=== PATIENT | male | born 1945 | race Caucasian/White ===

== ENCOUNTER 2018-07-08 08:31 | Inpatient (IN) | payer MEDICARE | END 2018-07-12 12:06 | disposition home or self-care (01) | LOC: PAS IN 08:31 → ORTHO 4S 17:25 | PROC: 0RPK0JZ Removal of Synthetic Substitute from Left Shoulder Joint, Open Approach (ICD-10-PCS; principal; 2018-07-08 13:06) | PROC: 0RHK08Z Insertion of Spacer into Left Shoulder Joint, Open Approach (ICD-10-PCS; 2018-07-08 13:06) | DX: T84.59XA Infection and inflammatory reaction due to other internal joint prosthesis, initial encounter (principal); D62 Acute posthemorrhagic anemia; Z96.612 Presence of left artificial shoulder joint; M25.512 Pain in left shoulder ==

== ENCOUNTER 2019-02-27 06:24 | Emergency (ER) | payer MEDICARE ==
[~2019-02-27] VITALS: Ht 175.3 cm; Wt 141.8 kg
[~2019-02-27 06:24] MED LIST: ASPI-1 PO; CARV-50 PO; CYAN-51 PO; IPRA4AER IH; MULT-1085 PO; OMEP20CA11 PO; SPIR50TA PO
[2019-02-27 07:33] LABS: BASOPHILS # (AUTO) 0.1 X10'3 (0-0.2); BASOPHILS % (AUTO) 0.7 % (0-1); EOSINOPHILS # (AUTO) 0.5 X10'3 (0-0.9); EOSINOPHILS % (AUTO) 6.2 % (0-6); HEMATOCRIT 35.3 % (42.0-52.0); HEMOGLOBIN 12.3 g/dl (14.0-17.9); LYMPHOCYTES # (AUTO) 2.3 X10'3 (1.1-4.8); LYMPHOCYTES % (AUTO) 27.5 % (21-51); MEAN CORPUSCULAR HEMOGLOBIN 33.7 PG (27.0-31.0); MEAN CORPUSCULAR HGB CONC 34.8 g/dL (33.0-36.5); MONOCYTES # (AUTO) 0.5 X10'3 (0-0.9); MONOCYTES % (AUTO) 6.1 % (2-12); NEUTROPHILS # (AUTO) 4.9 X10'3 (1.8-7.7); NEUTROPHILS % (AUTO) 59.5 % (42-75); PLATELET COUNT 191 X10'3 (140-440); RED BLOOD COUNT 3.64 X10'6 (4.70-6.10); RED CELL DISTRIBUTION WIDTH 14.8 % (11.5-14.5); WHITE BLOOD COUNT 8.2 X10'3 (4.5-11.0)
[2019-02-27 07:34] LABS: CLARITY,URINE CLEAR (Clear); COLOR,URINE YELLOW (Yellow); GLUCOSE, URINE NEGATIVE (Neg); KETONES,URINE NEGATIVE (Neg); LEUKOCYTE ESTERASE ,URINE NEGATIVE (Neg); NITRITES, URINE NEGATIVE (Neg); OCCULT BLOOD,URINE NEGATIVE (Neg); PROTEIN,URINE 100 mg/dl (Neg); UROBILINOGEN,URINE 0.2 E.U/dL (0.2-1.0)
[2019-02-27 07:44] LABS: UA COLLECTION TYPE CLN CATCH MIDSTREAM
[2019-02-27 07:45] LABS: BACTERIA,URINE NONE SEEN /HPF (Neg); RBC,URINE NONE SEEN /HPF (0-2); SQUAMOUS EPITHELIAL CELL,UR FEW /LPF (FEW); WBC,URINE 0-4 /HPF (0-4)
[2019-02-27 07:46] LABS: MUCUS STRANDS NONE SEEN /LPF (Neg)
[2019-02-27 07:59] LABS: ALBUMIN 3.4 G/DL (3.4-5.0); ALBUMIN/GLOBULIN RATIO 0.9 (1.1-1.5); ALKALINE PHOSPHATASE 114 IU/L (46-116); ANION GAP 12 (8-16); ASPARTATE AMINO TRANSFERASE 12 U/L (10-37); BILIRUBIN,TOTAL 1.5 MG/DL (0.1-1.0); BLOOD UREA NITROGEN 16 MG/DL (7-18); BUN/CREATININE RATIO 13.6 (5.4-32.0); CHLORIDE 102 MMOL/L (99-107); CREATININE 1.18 MG/DL (0.60-1.10); GLUCOSE 116 MG/DL (70-104); POTASSIUM 3.1 MMOL/L (3.5-5.1); SODIUM 141 MMOL/L (135-145); TOTAL CARBON DIOXIDE 27.3 MMOL/L (24-32); TOTAL PROTEIN 7.1 G/DL (6.4-8.2); eGFR 61 ML/MIN
[2019-02-27 08:01] LABS: ALANINE AMINOTRANSFERASE < 6 U/L (12-78)
[2019-02-27 08:50] VITALS: BP 160/104
[2019-03-02] MEDS ORDERED: FURO20TA4 PO (13:55)
[2019-03-02] MEDS ORDERED: VIT1CAPS27 PO (13:55)
[2019-03-02] MEDS ORDERED: AMLO5TAB16 PO (13:55)
[2019-03-02] MEDS ORDERED: LISI-600 PO (13:55)
[2019-03-02] MEDS ORDERED: CHLO25TA2 PO (13:55)
== END 2019-02-27 08:53 | disposition home or self-care (01) ==
LOC: ER 06:25
DX: I10 Essential (primary) hypertension (principal); M54.5 Low back pain; Z88.0 Allergy status to penicillin; Z88.1 Allergy status to other antibiotic agents; Z88.8 Allergy status to other drugs, medicaments and biological substances; Z79.82 Long term (current) use of aspirin; Z79.899 Other long term (current) drug therapy
CPT/HCPCS: 36415; 80053; 81001; 85025; 93005; 99284

== ENCOUNTER 2019-03-06 11:06 | Inpatient (IN) | payer MEDICARE ==
[~2019-03-06] VITALS: Ht 175.3 cm; Wt 136.0 kg
[2019-03-06] VITALS (16 sets, daily range): BP systolic 147–214; BP diastolic 82–111
[~2019-03-06 11:06] MED LIST changes: +AMLO5TAB16 PO; -ASPI-1 PO; +CHLO25TA2 PO; +DOCUMENT DATE & TIME OF BETA-BLOCKER PO ONE; +FURO20TA4 PO; +LISI-600 PO; +MESSAGE TO NURSING IV ONE; +OMEP-297 PO; -OMEP20CA11 PO; -SPIR50TA PO; +VIT1CAPS27 PO; +famotidine 20mg tablet PO ONE; +ringers solution, lacted 1,000 ML IV SCH; +tranexamic acid inj. 1,400 MG in normal saline 100ml IV soln 100 ML IV ONE
[2019-03-06] MEDS ORDERED: vancomycin/NS 1 GM ADD-VANTAGE 250 ML IV ONE (12:05)
[2019-03-06] MEDS ORDERED: ketorolac trometh. 30mg/ml inj. ONE (13:19)
[2019-03-06] MEDS ORDERED: ROPIVAcaine 0.5% (5mg/ml) 30ml vial ONE ×2 (13:20→16:52)
[2019-03-06] MEDS ORDERED: BUPIVAcaine/PF 2.5mg/ml (0.25%) 10ml vial ONE (15:09)
[2019-03-06] MEDS ORDERED: sevoflurane 250ml liquid IH ONE (15:10)
[2019-03-06] MEDS ORDERED: fentaNYL/PF 50MCG/1 ML 2ML syringe ONE ×2 (15:20→16:54)
[2019-03-06] MEDS: ROPIVAcaine 0.2%/PF PUMP/bolus 550 ML INTERSCALE SCH ×2 (16:41→20:31)
[2019-03-06] MEDS ORDERED: ringers solution, lacted 1,000 ML IV SCH (16:41)
[2019-03-06] MEDS ORDERED: ROPIVAcaine 0.2%/PF PUMP/bolus 550 ML SCH (16:41)
[2019-03-06] MEDS ORDERED: ondansetron/PF 4mg/2ml inj IV PRN ×2 (16:45→18:10)
[2019-03-06] MEDS ORDERED: HYDROmorphone inj. 0.5 MG/0.5 ML DISP.SYRIN IV PRN ×3 (16:45→18:10)
[2019-03-06] MEDS ORDERED: morphine 4 MG/ML inj SYRINge IV PRN (16:45)
[2019-03-06] MEDS ORDERED: ROPIVAcaine 0.2% (10 MG/5 ML) BOLUS INJECTION INTERSCALE PRN (16:45)
[2019-03-06] MEDS ORDERED: MIDAZolam 5mg/5ml vial ONE (16:50)
[2019-03-06] MEDS ORDERED: dexamethasone sod phosphate 4mg/ml inj. ONE (16:52)
[2019-03-06] MEDS ORDERED: propofol inj 20 ML IV ONE (16:52)
[2019-03-06] MEDS ORDERED: glycopyrrolate 0.2mg/ml inj ONE (16:52)
[2019-03-06] MEDS ORDERED: LIDOcaine 1%/PF 5ML 10 MG/ML VIAL ONE (16:52)
[2019-03-06] MEDS ORDERED: neostigmine methylsulfate 1 MG/ML 10ml vial ONE (16:52)
[2019-03-06] MEDS ORDERED: ondansetron/PF 4mg/2ml inj ONE (16:52)
[2019-03-06] MEDS ORDERED: succinylcholine 20mg/ml inj IV ONE (16:52)
[2019-03-06] MEDS ORDERED: rocuronium 10mg/ml inj IV ONE (16:52)
[2019-03-06 17:38] LABS: APPEARANCE,SYNOVIAL FLUID BLOODY; COLOR,SYNOVIAL FLUID RED; LYMPHOCYTES,SYNOVIAL FLUID 58 % (0-75); NEUTROPHILS,SYNOVIAL FLUID 20 % (0-25); SYN RBC 85500 /CU MM (0); SYN WBC 513 /CU MM (0-200)
[2019-03-06 17:39] LABS: MONOCYTES,SYNOVIAL FLUID 22 % (0-0); SYNOVIAL LINING CELLS FEW
[2019-03-06] MEDS ORDERED: acetaminophen 325mg tablet PO PRN (18:10)
[2019-03-06] MEDS ORDERED: diphenhydrAMINE 25mg capsule PO PRN ×2 (18:10)
[2019-03-06] MEDS ORDERED: bisacodyl 10mg suppository rectal RC PRN (18:10)
[2019-03-06] MEDS ORDERED: HYDROmorphone 1 mg/ml syringe IV PRN (18:10)
[2019-03-06] MEDS ORDERED: magnesium hydroxide 30ml (MOM) UD suspension PO PRN (18:10)
--- NOTE | 2019-03-06 18:13 | NUR ---
Received from OR via , accompanied by Anesthesiologist DR CURIEL and report given by Anesthesiolgist. AWAKENS TO VOICE. VITALS STABLE. DRESSING DI. STATES PAIN TO LT SHOULDER. LUE IN SIMPLE SLING. FINGERS WARM AND PINK.
[2019-03-06] MEDS ORDERED: hydrALAZINE 20mg/ml inj. IV ONE (18:55)
--- NOTE | 2019-03-06 19:10 | NUR ---
Received patient report from MANAN Simons. Patient and belongings transferred to floor, assumed patient care.
--- NOTE | 2019-03-06 19:13 | NUR ---
Report called to receiving nurse. Transferred via BED Belongings . Special Issues communicated to receiving nurse. AWAKE AND ORIENTED. VITALS STABLE. DRESSING DI. STATES PAIN HAS IMPROVED. TO JOY RM [id number] AT THIS TIME.
[2019-03-06] MEDS: ROPIVAcaine 0.2% (10 MG/5 ML) BOLUS INJECTION INTERSCALE PRN (20:32)
[2019-03-06] MEDS: ipratropium/albuterol 3ml nebule IH PRN (20:41)
[2019-03-06] MEDS: amLODIPine 5mg tablet PO SCH (20:47)
[2019-03-06] MEDS: carVEDilol 12.5mg tablet PO SCH (20:47)
[2019-03-06] MEDS: sennosides 8.6mg tablet PO SCH (20:50)
[2019-03-06] MEDS: acetaminophen 325mg tablet PO SCH (20:50)
[2019-03-06] MEDS: lisinopril 20mg tablet PO SCH (20:56)
[2019-03-06] MEDS: potassium cl 20mEq in 1/2 NS 1,000 ML IV SCH (21:45)
[2019-03-06] MEDS: oxyCODONE IR 5mg (immed. release) tablet PO PRN (23:04)
[2019-03-07] MEDS: CLINDAmcin 900mg/NS 50ml IVPB 50 ML IV SCH ×3 (00:16→17:02)
[2019-03-07 02:00] VITALS: BP 138/83
[2019-03-07] MEDS: acetaminophen 325mg tablet PO SCH ×4 (02:44→20:09)
[2019-03-07] MEDS: oxyCODONE IR 5mg (immed. release) tablet PO PRN ×4 (05:11→22:46)
[2019-03-07 06:00] VITALS: BP 113/75
--- NOTE | 2019-03-07 06:23 | NUR ---
Patient report given, questions answered and plan of care reviewed with MANAN Joyce.
[2019-03-07] MEDS: potassium cl 20mEq in 1/2 NS 1,000 ML IV SCH ×3 (06:28→22:43)
--- NOTE | 2019-03-07 06:35 | NUR ---
Patient in room ORTHO 4009. I have received report from RAHEEM HINKLE and had the opportunity to ask questions and assume patient care.
--- NOTE | 2019-03-07 06:41 | NUR ---
SENT PAGE TO RESPIRATORY, PT REQUESTING PRN BREATHING TREATMENT
[2019-03-07] MEDS: ipratropium/albuterol 3ml nebule IH PRN (07:11)
[2019-03-07 07:17] LABS: ANION GAP 8 (8-16); BASOPHILS % (AUTO) 0.1 % (0-1); CHLORIDE 101 MMOL/L (99-107); EOSINOPHILS % (AUTO) 0 % (0-6); HEMATOCRIT 36.9 % (42.0-52.0); HEMOGLOBIN 12.7 g/dl (14.0-17.9); LYMPHOCYTES # (AUTO) 1.1 X10'3 (1.1-4.8); LYMPHOCYTES % (AUTO) 10.9 % (21-51); MEAN CORPUSCULAR HEMOGLOBIN 33.7 PG (27.0-31.0); MEAN CORPUSCULAR HGB CONC 34.5 g/dL (33.0-36.5); MEAN CORPUSCULAR VOLUME 97.6 FL (78-98); MEAN PLATELET VOLUME 8.2 FL (7.4-10.4); MONOCYTES # (AUTO) 0.4 X10'3 (0-0.9); NEUTROPHILS # (AUTO) 8.7 X10'3 (1.8-7.7); PLATELET COUNT 265 X10'3 (140-440); POTASSIUM 3.8 MMOL/L (3.5-5.1); RED BLOOD COUNT 3.78 X10'6 (4.70-6.10); RED CELL DISTRIBUTION WIDTH 14.7 % (11.5-14.5); SODIUM 137 MMOL/L (135-145); TOTAL CARBON DIOXIDE 27.7 MMOL/L (24-32); WHITE BLOOD COUNT 10.2 X10'3 (4.5-11.0)
[2019-03-07] MEDS: ZNOX PO SCH (08:00)
[2019-03-07] MEDS: COPPER PO SCH (08:00)
[2019-03-07] MEDS: VITE AC PO SCH (08:00)
[2019-03-07] MEDS: VIT C PO SCH (08:00)
[2019-03-07] MEDS: LUT PO SCH (08:00)
[2019-03-07] MEDS: pantoprazole 40mg Tablet.DR PO SCH (08:32)
[2019-03-07] MEDS: chlorthalidone 25mg tablet PO SCH (08:32)
[2019-03-07] MEDS: carVEDilol 12.5mg tablet PO SCH ×2 (08:35→20:11)
[2019-03-07] MEDS: furosemide 20MG tablet PO SCH (08:36)
[2019-03-07] MEDS: multivitamins, therapeutics tablet PO SCH (08:36)
[2019-03-07] MEDS: cyanocobalamin 500mcg tablet PO SCH (08:38)
[2019-03-07] MEDS: lisinopril 20mg tablet PO SCH ×2 (08:41→20:09)
[2019-03-07] MEDS: aspirin 325mg tablet PO SCH (08:41)
[2019-03-07 10:00] VITALS: BP 125/69
--- NOTE | 2019-03-07 13:36 | NUR ---
Joint replacement consult: Pt PO 75-100% avg regular meals so far this admit meeting healing needs. Will continue to monitor. Addendum: 03/07/19 at [address] Amended: Links added.
[2019-03-07 14:00] VITALS: BP 133/76
[2019-03-07 18:00] VITALS: BP 113/56
--- NOTE | 2019-03-07 18:20 | NUR ---
Received report from MANAN Joyce. Assumed patient care.
--- NOTE | 2019-03-07 18:32 | NUR ---
Problems reprioritized. Patient report given, questions answered & plan of care reviewed with [place].
[2019-03-07] MEDS: amLODIPine 5mg tablet PO SCH (20:09)
[2019-03-07] MEDS: sennosides 8.6mg tablet PO SCH (20:09)
[2019-03-07 22:00] VITALS: BP 133/76
[2019-03-08] MEDS: acetaminophen 325mg tablet PO SCH ×3 (02:05→14:19)
[2019-03-08] MEDS: oxyCODONE IR 5mg (immed. release) tablet PO PRN ×2 (05:26→18:39)
[2019-03-08 06:00] VITALS: BP 160/77
[2019-03-08 06:21] LABS: BASOPHILS % (AUTO) 0.3 % (0-1); EOSINOPHILS # (AUTO) 0.1 X10'3 (0-0.9); HEMATOCRIT 32.5 % (42.0-52.0); HEMOGLOBIN 11.3 g/dl (14.0-17.9); LYMPHOCYTES # (AUTO) 2.2 X10'3 (1.1-4.8); LYMPHOCYTES % (AUTO) 23.5 % (21-51); MEAN CORPUSCULAR HEMOGLOBIN 33.9 PG (27.0-31.0); MEAN CORPUSCULAR HGB CONC 34.6 g/dL (33.0-36.5); MEAN CORPUSCULAR VOLUME 97.9 FL (78-98); MONOCYTES % (AUTO) 10.4 % (2-12); NEUTROPHILS % (AUTO) 64.8 % (42-75); PLATELET COUNT 233 X10'3 (140-440); RED BLOOD COUNT 3.32 X10'6 (4.70-6.10); RED CELL DISTRIBUTION WIDTH 14.9 % (11.5-14.5); WHITE BLOOD COUNT 9.3 X10'3 (4.5-11.0)
--- NOTE | 2019-03-08 06:24 | NUR ---
Patient report given, questions answered and plan of care reviewed with MANAN Reyes.
--- NOTE | 2019-03-08 06:25 | NUR ---
Patient in room ORTHO 4009. I have received report from Linda and had the opportunity to ask questions and assume patient care.
[2019-03-08] MEDS: potassium cl 20mEq in 1/2 NS 1,000 ML IV SCH ×3 (07:31→16:13)
[2019-03-08] MEDS: pantoprazole 40mg Tablet.DR PO SCH (07:58)
[2019-03-08] MEDS: chlorthalidone 25mg tablet PO SCH (07:58)
[2019-03-08] MEDS: furosemide 20MG tablet PO SCH (07:59)
[2019-03-08] MEDS: multivitamins, therapeutics tablet PO SCH (07:59)
[2019-03-08] MEDS: carVEDilol 12.5mg tablet PO SCH ×2 (07:59→20:25)
[2019-03-08] MEDS: LUT PO SCH (08:00)
[2019-03-08] MEDS: VITE AC PO SCH (08:00)
[2019-03-08] MEDS: aspirin 325mg tablet PO SCH (08:00)
[2019-03-08] MEDS: cyanocobalamin 500mcg tablet PO SCH (08:00)
[2019-03-08] MEDS: COPPER PO SCH (08:00)
[2019-03-08] MEDS: ZNOX PO SCH (08:00)
[2019-03-08] MEDS: VIT C PO SCH (08:00)
[2019-03-08] MEDS: lisinopril 20mg tablet PO SCH ×2 (08:00→20:26)
[2019-03-08] MEDS: ipratropium/albuterol 3ml nebule IH PRN (09:06)
[2019-03-08 10:00] VITALS: BP 121/70
[2019-03-08] MEDS: ROPIVAcaine 0.2%/PF PUMP/bolus 550 ML INTERSCALE SCH (10:40)
[2019-03-08 18:00] VITALS: BP 157/93
[2019-03-08] MEDS ORDERED: acetaminophen 325mg tablet PO PRN (18:10)
--- NOTE | 2019-03-08 18:17 | NUR ---
Problems reprioritized. Patient report given, questions answered & plan of care reviewed with
--- NOTE | 2019-03-08 18:30 | NUR ---
Patient in room ORTHO 4009. I have received report from ascencion Reyes and had the opportunity to ask questions and assume patient care.
[2019-03-08] MEDS: sennosides 8.6mg tablet PO SCH (20:24)
[2019-03-08] MEDS: amLODIPine 5mg tablet PO SCH (20:26)
[2019-03-08] MEDS: ROPIVAcaine 0.2% (10 MG/5 ML) BOLUS INJECTION INTERSCALE PRN (21:59)
[2019-03-08 22:00] VITALS: BP 124/70
[2019-03-09] MEDS: oxyCODONE IR 5mg (immed. release) tablet PO PRN ×3 (00:14→13:28)
[2019-03-09] MEDS: ROPIVAcaine 0.2% (10 MG/5 ML) BOLUS INJECTION INTERSCALE PRN (00:16)
[2019-03-09 05:50] LABS: BASOPHILS % (AUTO) 0.3 % (0-1); EOSINOPHILS # (AUTO) 0.3 X10'3 (0-0.9); EOSINOPHILS % (AUTO) 2.5 % (0-6); HEMATOCRIT 34.4 % (42.0-52.0); HEMOGLOBIN 11.9 g/dl (14.0-17.9); LYMPHOCYTES # (AUTO) 1.4 X10'3 (1.1-4.8); LYMPHOCYTES % (AUTO) 12.7 % (21-51); MEAN CORPUSCULAR HEMOGLOBIN 33.9 PG (27.0-31.0); MEAN CORPUSCULAR HGB CONC 34.5 g/dL (33.0-36.5); MEAN PLATELET VOLUME 8.1 FL (7.4-10.4); MONOCYTES # (AUTO) 1.2 X10'3 (0-0.9); MONOCYTES % (AUTO) 11.4 % (2-12); NEUTROPHILS % (AUTO) 73.1 % (42-75); PLATELET COUNT 231 X10'3 (140-440); RED BLOOD COUNT 3.51 X10'6 (4.70-6.10); RED CELL DISTRIBUTION WIDTH 14.8 % (11.5-14.5)
[2019-03-09 06:00] VITALS: BP 144/78
--- NOTE | 2019-03-09 06:31 | NUR ---
Problems reprioritized. Patient report given, questions answered & plan of care reviewed with MANAN MOSER.
--- NOTE | 2019-03-09 06:37 | NUR ---
Patient in room ORTHO 4009. I have received report from Yas HINKLE and had the opportunity to ask questions and assume patient care.
[2019-03-09] MEDS: pantoprazole 40mg Tablet.DR PO SCH (07:51)
[2019-03-09] MEDS: chlorthalidone 25mg tablet PO SCH (07:51)
[2019-03-09] MEDS: multivitamins, therapeutics tablet PO SCH (07:51)
[2019-03-09] MEDS: cyanocobalamin 500mcg tablet PO SCH (07:51)
[2019-03-09] MEDS: furosemide 20MG tablet PO SCH (07:51)
[2019-03-09] MEDS: aspirin 325mg tablet PO SCH (07:51)
[2019-03-09] MEDS: lisinopril 20mg tablet PO SCH (07:52)
[2019-03-09] MEDS: carVEDilol 12.5mg tablet PO SCH (07:52)
[2019-03-09] MEDS: LUT PO SCH (07:53)
[2019-03-09] MEDS: COPPER PO SCH (07:53)
[2019-03-09] MEDS: ZNOX PO SCH (07:53)
[2019-03-09] MEDS: VIT C PO SCH (07:53)
[2019-03-09] MEDS: VITE AC PO SCH (07:53)
[2019-03-09 10:00] VITALS: BP 100/67
[2019-03-09] MEDS: ROPIVAcaine 0.2%/PF PUMP/bolus 550 ML INTERSCALE SCH (13:19)
--- NOTE | 2019-03-09 16:19 | NUR ---
Safe DC with [facility]. All personal items with patient
== END 2019-03-09 16:16 | DRG 483 ==
LOC: PAS IN 11:06 → EDSTATUS 14:00 → ORTHO 4S 19:15
PROVIDERS: ADMIT Orthopaedic Surgery; ATTEND Orthopaedic Surgery
PROC: 0RPK08Z Removal of Spacer from Left Shoulder Joint, Open Approach (ICD-10-PCS; 2019-03-06)
PROC: 0RPK0JZ Removal of Synthetic Substitute from Left Shoulder Joint, Open Approach (ICD-10-PCS; 2019-03-06)
PROC: 5A09357 Assistance with Respiratory Ventilation, Less than 24 Consecutive Hours, Continuous Positive Airway Pressure (ICD-10-PCS; 2019-03-06)
PROC: 3E0T3BZ Introduction of Anesthetic Agent into Peripheral Nerves and Plexi, Percutaneous Approach (ICD-10-PCS; 2019-03-06)
PROC: 0RRK00Z Replacement of Left Shoulder Joint with Reverse Ball and Socket Synthetic Substitute, Open Approach (ICD-10-PCS; principal; 2019-03-06 15:10)
PROC: 5A09357 Assistance with Respiratory Ventilation, Less than 24 Consecutive Hours, Continuous Positive Airway Pressure (ICD-10-PCS; 2019-03-08)
DX: T84.59XA Infection and inflammatory reaction due to other internal joint prosthesis, initial encounter (principal); D62 Acute posthemorrhagic anemia; I10 Essential (primary) hypertension; J45.909 Unspecified asthma, uncomplicated; R29.6 Repeated falls; Y79.2 Prosthetic and other implants, materials and accessory orthopedic devices associated with adverse incidents; Z96.612 Presence of left artificial shoulder joint; G47.30 Sleep apnea, unspecified; G62.9 Polyneuropathy, unspecified; G89.29 Other chronic pain; K21.9 Gastro-esophageal reflux disease without esophagitis; K59.00 Constipation, unspecified; M54.9 Dorsalgia, unspecified; Z88.0 Allergy status to penicillin; Y92.89 Other specified places as the place of occurrence of the external cause; Z79.899 Other long term (current) drug therapy
CPT/HCPCS: 36415; 80051; 82948; 85025; 87070; 87075; 87081; 89051; 94640; 94760; 97110; 97116; 97162; 97530; A4215; A4565; A4618; A7000; C1776; G0378; J0330; J0360; J1100; J1170; J1885; J2250; J2270; J2405; J2704; J2710; J2795; J3010; J3370; J3420; J3480; J3490; J7120

== ENCOUNTER 2019-05-24 16:38 | Emergency (ER) | payer MEDICARE ==
[~2019-05-24] VITALS: Ht 175.3 cm; Wt 126.4 kg
[~2019-05-24 16:38] MED LIST changes: -DOCUMENT DATE & TIME OF BETA-BLOCKER PO ONE; -MESSAGE TO NURSING IV ONE; -OMEP-297 PO; +OMEP20CA15 PO; -famotidine 20mg tablet PO ONE; -ringers solution, lacted 1,000 ML IV SCH; -tranexamic acid inj. 1,400 MG in normal saline 100ml IV soln 100 ML IV ONE
[2019-05-24 17:50] LABS: ALANINE AMINOTRANSFERASE 10 U/L (12-78); ALBUMIN 3.1 G/DL (3.4-5.0); ALBUMIN/GLOBULIN RATIO 0.7 (1.1-1.5); ALKALINE PHOSPHATASE 95 IU/L (46-116); ANION GAP 12 (8-16); ASPARTATE AMINO TRANSFERASE 17 U/L (10-37); BILIRUBIN,TOTAL 1.6 MG/DL (0.1-1.0); BLOOD UREA NITROGEN 41 MG/DL (7-18); BUN/CREATININE RATIO 18.3 (5.4-32.0); CALCIUM 8.2 MG/DL (8.5-10.1); CHLORIDE 99 MMOL/L (99-107); CREATININE 2.24 MG/DL (0.60-1.10); GLUCOSE 123 MG/DL (70-104); POTASSIUM 3.6 MMOL/L (3.5-5.1); SODIUM 137 MMOL/L (135-145); TOTAL CARBON DIOXIDE 26.4 MMOL/L (24-32); TOTAL PROTEIN 7.4 G/DL (6.4-8.2); eGFR 29 ML/MIN
[2019-05-24 17:55] LABS: BASOPHILS # (AUTO) 0.1 X10'3 (0-0.2); BASOPHILS % (AUTO) 0.7 % (0-1); EOSINOPHILS # (AUTO) 0.2 X10'3 (0-0.9); EOSINOPHILS % (AUTO) 2.1 % (0-6); HEMOGLOBIN 10.1 g/dl (14.0-17.9); LYMPHOCYTES # (AUTO) 1.8 X10'3 (1.1-4.8); LYMPHOCYTES % (AUTO) 24.4 % (21-51); MEAN CORPUSCULAR HEMOGLOBIN 32.1 PG (27.0-31.0); MEAN CORPUSCULAR HGB CONC 34.8 g/dL (33.0-36.5); MEAN CORPUSCULAR VOLUME 92.2 FL (78-98); MEAN PLATELET VOLUME 8.3 FL (7.4-10.4); MONOCYTES # (AUTO) 0.9 X10'3 (0-0.9); MONOCYTES % (AUTO) 11.8 % (2-12); NEUTROPHILS # (AUTO) 4.6 X10'3 (1.8-7.7); PLATELET COUNT 300 X10'3 (140-440); RED BLOOD COUNT 3.14 X10'6 (4.70-6.10); RED CELL DISTRIBUTION WIDTH 16.4 % (11.5-14.5); WHITE BLOOD COUNT 7.6 X10'3 (4.5-11.0)
[2019-05-24 19:46] LABS: TOTAL CELLS COUNTED 100
[2019-05-24 19:47] LABS: ANISOCYTOSIS 1+; PLATELET ESTIMATE NORMAL; TOXIC GRANULATION 1+
--- NOTE | 2019-05-24 21:17 | NUR ---
took his VS and gave him a cup of water to drink. Encouraged fluids. His bp is a little low, he is visiting and laughing with me.
[2019-05-25] MEDS ORDERED: normal saline 1000ML IV soln IVB ONE (00:05)
[2019-05-25 01:19] LABS: TROPONIN I < 0.04 NG/ML (0.0-0.05)
[2019-05-25 01:32] VITALS: BP 127/66
== END 2019-05-25 01:35 | disposition home or self-care (01) ==
LOC: ER 16:40
DX: K52.9 Noninfective gastroenteritis and colitis, unspecified (principal); R53.1 Weakness; N18.9 Chronic kidney disease, unspecified; M25.519 Pain in unspecified shoulder; I12.9 Hypertensive chronic kidney disease with stage 1 through stage 4 chronic kidney disease, or unspecified chronic kidney disease; Z98.890 Other specified postprocedural states; Z88.0 Allergy status to penicillin; Z88.1 Allergy status to other antibiotic agents; Z79.899 Other long term (current) drug therapy
CPT/HCPCS: 36415; 80053; 84439; 84443; 84484; 85025; 93005; 99284; J7030

== ENCOUNTER 2019-08-09 06:48 | Emergency (ER) | payer MEDICARE ==
[~2019-08-09] VITALS: Ht 175.3 cm; Wt 123.0 kg
[2019-08-09] MEDS ORDERED: normal saline 1000ML IV soln IVB ONE (07:00)
[2019-08-09] MEDS ORDERED: metoclopramide 5 mg/ml inj IV ONE (07:25)
[2019-08-09 07:32] LABS: BASOPHILS # (AUTO) 0.1 X10'3 (0-0.2); BASOPHILS % (AUTO) 0.5 % (0-1); EOSINOPHILS # (AUTO) 0.6 X10'3 (0-0.9); HEMOGLOBIN 13.7 g/dl (14.0-17.9); LYMPHOCYTES # (AUTO) 2.3 X10'3 (1.1-4.8); LYMPHOCYTES % (AUTO) 23.6 % (21-51); MEAN CORPUSCULAR HGB CONC 33.5 g/dL (33.0-36.5); MEAN CORPUSCULAR VOLUME 98.4 FL (78-98); MEAN PLATELET VOLUME 9.2 FL (7.4-10.4); MONOCYTES # (AUTO) 1.1 X10'3 (0-0.9); MONOCYTES % (AUTO) 10.7 % (2-12); NEUTROPHILS # (AUTO) 5.9 X10'3 (1.8-7.7); NEUTROPHILS % (AUTO) 59.2 % (42-75); PLATELET COUNT 163 X10'3 (140-440); RED BLOOD COUNT 4.17 X10'6 (4.70-6.10); RED CELL DISTRIBUTION WIDTH 14.3 % (11.5-14.5); WHITE BLOOD COUNT 9.9 X10'3 (4.5-11.0)
[2019-08-09 07:47] LABS: ALANINE AMINOTRANSFERASE 18 U/L (12-78); ALBUMIN 3.6 G/DL (3.4-5.0); ALBUMIN/GLOBULIN RATIO 0.9 (1.1-1.5); ALKALINE PHOSPHATASE 170 IU/L (46-116); ANION GAP 13 (8-16); ASPARTATE AMINO TRANSFERASE 42 U/L (10-37); BILIRUBIN,TOTAL 2.4 MG/DL (0.1-1.0); BLOOD UREA NITROGEN 30 MG/DL (7-18); BUN/CREATININE RATIO 16.2 (5.4-32.0); CALCIUM 8.6 MG/DL (8.5-10.1); CHLORIDE 86 MMOL/L (99-107); CREATININE 1.85 MG/DL (0.60-1.10); GLUCOSE 143 MG/DL (70-104); LIPASE 67 U/L (73-393); POTASSIUM 3.1 MMOL/L (3.5-5.1); SODIUM 127 MMOL/L (135-145); TOTAL CARBON DIOXIDE 28.4 MMOL/L (24-32); TOTAL PROTEIN 7.7 G/DL (6.4-8.2); eGFR 36 ML/MIN
[2019-08-09 10:52] VITALS: BP 117/55
== END 2019-08-09 10:57 | disposition home or self-care (01) ==
LOC: ER 06:48
DX: R10.11 Right upper quadrant pain (principal); R11.2 Nausea with vomiting, unspecified; F10.10 Alcohol abuse, uncomplicated; I11.0 Hypertensive heart disease with heart failure; I50.9 Heart failure, unspecified; Z90.49 Acquired absence of other specified parts of digestive tract; Z98.890 Other specified postprocedural states; Z88.0 Allergy status to penicillin; Z79.2 Long term (current) use of antibiotics; Z79.899 Other long term (current) drug therapy
CPT/HCPCS: 36415; 74176; 80053; 83690; 85025; 96361; 96374; 99285; J2765; J7030

== ENCOUNTER 2019-10-25 09:55 | Day surgery (SDC) | payer MEDICARE ==
[~2019-10-25 09:55] MED LIST changes: +ALLO100T PO; -CHLO25TA2 PO; +DULO20CA18 PO; -FURO20TA4 PO
[2019-10-25] MEDS ORDERED: LIDOcaine 2% 5ml jelly ONE (10:42)
[2019-10-25 11:20] LABS: BASOPHILS # (AUTO) 0.1 X10'3 (0-0.2); BASOPHILS % (AUTO) 0.6 % (0-1); EOSINOPHILS # (AUTO) 0.5 X10'3 (0-0.9); EOSINOPHILS % (AUTO) 6.1 % (0-6); HEMATOCRIT 32.7 % (42.0-52.0); LYMPHOCYTES # (AUTO) 2.3 X10'3 (1.1-4.8); LYMPHOCYTES % (AUTO) 27.8 % (21-51); MEAN CORPUSCULAR HEMOGLOBIN 32.9 PG (27.0-31.0); MEAN CORPUSCULAR HGB CONC 33.8 g/dL (33.0-36.5); MEAN CORPUSCULAR VOLUME 97.6 FL (78-98); MEAN PLATELET VOLUME 7.6 FL (7.4-10.4); MONOCYTES # (AUTO) 0.5 X10'3 (0-0.9); MONOCYTES % (AUTO) 6.3 % (2-12); NEUTROPHILS # (AUTO) 4.9 X10'3 (1.8-7.7); NEUTROPHILS % (AUTO) 59.2 % (42-75); PLATELET COUNT 228 X10'3 (140-440); RED BLOOD COUNT 3.35 X10'6 (4.70-6.10); RED CELL DISTRIBUTION WIDTH 14.7 % (11.5-14.5); WHITE BLOOD COUNT 8.3 X10'3 (4.5-11.0)
[2019-10-25 11:35] LABS: ALANINE AMINOTRANSFERASE 7 U/L (12-78); ALBUMIN 3.7 G/DL (3.4-5.0); ALBUMIN/GLOBULIN RATIO 0.9 (1.1-1.5); ALKALINE PHOSPHATASE 86 IU/L (46-116); ANION GAP 9 (8-16); ASPARTATE AMINO TRANSFERASE 11 U/L (10-37); BILIRUBIN,TOTAL 0.7 MG/DL (0.1-1.0); BLOOD UREA NITROGEN 27 MG/DL (7-18); BUN/CREATININE RATIO 17.6 (5.4-32.0); C-REACTIVE PROTEIN 1.26 MG/DL (0.0-0.5); CALCIUM 8.4 MG/DL (8.5-10.1); CHLORIDE 103 MMOL/L (99-107); CREATININE 1.53 MG/DL (0.60-1.10); GLUCOSE 102 MG/DL (70-104); HEMOGLOBIN A1C 5.4 % (4.5-6.2); SODIUM 139 MMOL/L (135-145); TOTAL CARBON DIOXIDE 27.3 MMOL/L (24-32); TOTAL PROTEIN 7.8 G/DL (6.4-8.2); eGFR 45 ML/MIN
== END 2019-10-25 11:47 | disposition home or self-care (01) ==
LOC: WOUND CARE 09:55
PROVIDERS: ATTEND Nurse Practitioner
DX: L97.811 Non-pressure chronic ulcer of other part of right lower leg limited to breakdown of skin (principal); L97.821 Non-pressure chronic ulcer of other part of left lower leg limited to breakdown of skin; I87.2 Venous insufficiency (chronic) (peripheral); K21.9 Gastro-esophageal reflux disease without esophagitis; I13.0 Hypertensive heart and chronic kidney disease with heart failure and stage 1 through stage 4 chronic kidney disease, or unspecified chronic kidney disease; I50.9 Heart failure, unspecified; N18.4 Chronic kidney disease, stage 4 (severe); M10.9 Gout, unspecified; J45.909 Unspecified asthma, uncomplicated; M19.90 Unspecified osteoarthritis, unspecified site; M86.9 Osteomyelitis, unspecified; E78.5 Hyperlipidemia, unspecified; E87.6 Hypokalemia; E86.0 Dehydration; K57.90 Diverticulosis of intestine, part unspecified, without perforation or abscess without bleeding; F32.9 Major depressive disorder, single episode, unspecified; Z79.2 Long term (current) use of antibiotics; Z79.899 Other long term (current) drug therapy; Z98.890 Other specified postprocedural states; Z87.891 Personal history of nicotine dependence; Z90.49 Acquired absence of other specified parts of digestive tract
CPT/HCPCS: 36415; 80053; 83036; 85025; 85651; 86140; 97597; 97598

== ENCOUNTER 2019-11-15 06:43 | Emergency (ER) | payer MEDICARE ==
[~2019-11-15] VITALS: Ht 175.3 cm; Wt 118.2 kg
[2019-11-15 07:18] LABS: BASOPHILS % (AUTO) 0.5 % (0-1); EOSINOPHILS # (AUTO) 0.6 X10'3 (0-0.9); EOSINOPHILS % (AUTO) 7.1 % (0-6); HEMATOCRIT 28.7 % (42.0-52.0); HEMOGLOBIN 9.7 g/dl (14.0-17.9); LYMPHOCYTES # (AUTO) 2.5 X10'3 (1.1-4.8); LYMPHOCYTES % (AUTO) 30.7 % (21-51); MEAN CORPUSCULAR HEMOGLOBIN 33.8 PG (27.0-31.0); MEAN CORPUSCULAR HGB CONC 33.9 g/dL (33.0-36.5); MEAN CORPUSCULAR VOLUME 99.7 FL (78-98); MEAN PLATELET VOLUME 7.8 FL (7.4-10.4); MONOCYTES # (AUTO) 0.5 X10'3 (0-0.9); MONOCYTES % (AUTO) 6.5 % (2-12); NEUTROPHILS # (AUTO) 4.5 X10'3 (1.8-7.7); NEUTROPHILS % (AUTO) 55.2 % (42-75); PLATELET COUNT 171 X10'3 (140-440); RED BLOOD COUNT 2.88 X10'6 (4.70-6.10); RED CELL DISTRIBUTION WIDTH 14.4 % (11.5-14.5); WHITE BLOOD COUNT 8.2 X10'3 (4.5-11.0)
[2019-11-15 07:43] LABS: ALANINE AMINOTRANSFERASE 8 U/L (12-78); ALBUMIN 3.5 G/DL (3.4-5.0); ALKALINE PHOSPHATASE 87 IU/L (46-116); ANION GAP 12 (8-16); ASPARTATE AMINO TRANSFERASE 9 U/L (10-37); BILIRUBIN,TOTAL 0.3 MG/DL (0.1-1.0); BLOOD UREA NITROGEN 27 MG/DL (7-18); BUN/CREATININE RATIO 13.6 (5.4-32.0); CALCIUM 8.6 MG/DL (8.5-10.1); CHLORIDE 106 MMOL/L (99-107); CREATININE 1.99 MG/DL (0.60-1.10); GLUCOSE 105 MG/DL (70-104); POTASSIUM 4.2 MMOL/L (3.5-5.1); SODIUM 139 MMOL/L (135-145); TOTAL CARBON DIOXIDE 21.5 MMOL/L (24-32); TOTAL PROTEIN 7.1 G/DL (6.4-8.2); eGFR 33 ML/MIN
--- NOTE | 2019-11-15 07:47 | NUR ---
Pt states he last drank a rootbeer float last night at 1900 and he thinks it may have been caffeinated.
[2019-11-15 07:51] LABS: LIPASE < 50 U/L (73-393)
[2019-11-15 10:06] VITALS: BP 122/71
== END 2019-11-15 10:09 | disposition home or self-care (01) ==
LOC: ER 06:44
DX: R07.89 Other chest pain (principal); I11.0 Hypertensive heart disease with heart failure; I50.9 Heart failure, unspecified; Z90.49 Acquired absence of other specified parts of digestive tract; Z98.890 Other specified postprocedural states; Z88.1 Allergy status to other antibiotic agents; Z88.0 Allergy status to penicillin; Z79.899 Other long term (current) drug therapy
CPT/HCPCS: 36415; 71045; 80053; 83690; 83880; 84484; 85025; 93005; 99285

== ENCOUNTER 2019-11-23 12:46 | Day surgery (SDC) | payer MEDICARE ==
[2019-11-23] MEDS ORDERED: LIDOcaine 2% 5ml jelly ONE (13:23)
== END 2019-11-23 13:48 | disposition home or self-care (01) ==
LOC: WOUND CARE 12:46
PROVIDERS: ATTEND Nurse Practitioner
DX: L97.812 Non-pressure chronic ulcer of other part of right lower leg with fat layer exposed (principal); L97.822 Non-pressure chronic ulcer of other part of left lower leg with fat layer exposed; L97.221 Non-pressure chronic ulcer of left calf limited to breakdown of skin; L97.212 Non-pressure chronic ulcer of right calf with fat layer exposed; I87.2 Venous insufficiency (chronic) (peripheral); K21.9 Gastro-esophageal reflux disease without esophagitis; I13.0 Hypertensive heart and chronic kidney disease with heart failure and stage 1 through stage 4 chronic kidney disease, or unspecified chronic kidney disease; I50.9 Heart failure, unspecified; N18.4 Chronic kidney disease, stage 4 (severe); M10.9 Gout, unspecified; J45.909 Unspecified asthma, uncomplicated; M19.90 Unspecified osteoarthritis, unspecified site; M86.9 Osteomyelitis, unspecified; E78.5 Hyperlipidemia, unspecified; E87.6 Hypokalemia; E86.0 Dehydration; K57.90 Diverticulosis of intestine, part unspecified, without perforation or abscess without bleeding; F32.9 Major depressive disorder, single episode, unspecified; Z79.2 Long term (current) use of antibiotics; Z79.899 Other long term (current) drug therapy; Z98.890 Other specified postprocedural states; Z87.891 Personal history of nicotine dependence; Z90.49 Acquired absence of other specified parts of digestive tract
CPT/HCPCS: 29581; 87070; 87075; 87077; 87102; 97597; 97598

== ENCOUNTER 2019-11-30 12:15 | Day surgery (SDC) | payer MEDICARE ==
[2019-11-30] MEDS ORDERED: LIDOcaine 2% 5ml jelly ONE (13:00)
== END 2019-11-30 13:35 | disposition home or self-care (01) ==
LOC: WOUND CARE 12:15
PROVIDERS: ATTEND Nurse Practitioner
DX: L97.811 Non-pressure chronic ulcer of other part of right lower leg limited to breakdown of skin (principal); L97.821 Non-pressure chronic ulcer of other part of left lower leg limited to breakdown of skin; L97.221 Non-pressure chronic ulcer of left calf limited to breakdown of skin; L97.212 Non-pressure chronic ulcer of right calf with fat layer exposed; I87.2 Venous insufficiency (chronic) (peripheral); K21.9 Gastro-esophageal reflux disease without esophagitis; I13.0 Hypertensive heart and chronic kidney disease with heart failure and stage 1 through stage 4 chronic kidney disease, or unspecified chronic kidney disease; I50.9 Heart failure, unspecified; N18.4 Chronic kidney disease, stage 4 (severe); M10.9 Gout, unspecified; J45.909 Unspecified asthma, uncomplicated; M19.90 Unspecified osteoarthritis, unspecified site; M86.9 Osteomyelitis, unspecified; E78.5 Hyperlipidemia, unspecified; E87.6 Hypokalemia; E86.0 Dehydration; K57.90 Diverticulosis of intestine, part unspecified, without perforation or abscess without bleeding; F32.9 Major depressive disorder, single episode, unspecified; Z79.2 Long term (current) use of antibiotics; Z79.899 Other long term (current) drug therapy; Z98.890 Other specified postprocedural states; Z87.891 Personal history of nicotine dependence; Z90.49 Acquired absence of other specified parts of digestive tract
CPT/HCPCS: 97597

== ENCOUNTER 2019-12-02 02:23 | Emergency (ER) | payer MEDICARE ==
[~2019-12-02] VITALS: Ht 175.3 cm; Wt 118.2 kg
[2019-12-02 02:57] LABS: BASOPHILS % (AUTO) 0.4 % (0-1); EOSINOPHILS # (AUTO) 0.4 X10'3 (0-0.9); EOSINOPHILS % (AUTO) 4.6 % (0-6); HEMATOCRIT 32.2 % (42.0-52.0); HEMOGLOBIN 10.8 g/dl (14.0-17.9); LYMPHOCYTES # (AUTO) 2.3 X10'3 (1.1-4.8); LYMPHOCYTES % (AUTO) 25.4 % (21-51); MEAN CORPUSCULAR HEMOGLOBIN 33.5 PG (27.0-31.0); MEAN CORPUSCULAR HGB CONC 33.6 g/dL (33.0-36.5); MEAN CORPUSCULAR VOLUME 99.7 FL (78-98); MEAN PLATELET VOLUME 8.1 FL (7.4-10.4); MONOCYTES # (AUTO) 0.7 X10'3 (0-0.9); MONOCYTES % (AUTO) 8.1 % (2-12); NEUTROPHILS # (AUTO) 5.5 X10'3 (1.8-7.7); NEUTROPHILS % (AUTO) 61.5 % (42-75); PLATELET COUNT 201 X10'3 (140-440); RED BLOOD COUNT 3.23 X10'6 (4.70-6.10); RED CELL DISTRIBUTION WIDTH 14.5 % (11.5-14.5)
[2019-12-02 03:12] LABS: ALANINE AMINOTRANSFERASE 8 U/L (12-78); ALBUMIN 3.8 G/DL (3.4-5.0); ALBUMIN/GLOBULIN RATIO 0.9 (1.1-1.5); ALKALINE PHOSPHATASE 121 IU/L (46-116); ANION GAP 10 (8-16); ASPARTATE AMINO TRANSFERASE 11 U/L (10-37); BILIRUBIN,TOTAL 0.4 MG/DL (0.1-1.0); BLOOD UREA NITROGEN 17 MG/DL (7-18); BUN/CREATININE RATIO 12.1 (5.4-32.0); CALCIUM 8.6 MG/DL (8.5-10.1); CHLORIDE 107 MMOL/L (99-107); CREATININE 1.41 MG/DL (0.60-1.10); GLUCOSE 126 MG/DL (70-104); SODIUM 141 MMOL/L (135-145); TOTAL CARBON DIOXIDE 24.1 MMOL/L (24-32); TOTAL PROTEIN 7.9 G/DL (6.4-8.2); eGFR 49 ML/MIN
[2019-12-02 04:32] VITALS: BP 131/78
== END 2019-12-02 04:36 | disposition home or self-care (01) ==
LOC: ER 02:23
DX: R07.89 Other chest pain (principal); R11.0 Nausea; I50.9 Heart failure, unspecified; I11.0 Hypertensive heart disease with heart failure; J45.909 Unspecified asthma, uncomplicated; Z98.890 Other specified postprocedural states; Z88.0 Allergy status to penicillin; Z88.1 Allergy status to other antibiotic agents; Z88.8 Allergy status to other drugs, medicaments and biological substances; Z79.899 Other long term (current) drug therapy
CPT/HCPCS: 36415; 71045; 80053; 83880; 84484; 85025; 93005; 99285

== ENCOUNTER → 2019-12-07 | Day surgery (SDC) | payer MEDICARE ==
[~2019-12-07] MED LIST changes: +LIDOcaine 2% 5ml jelly ONE
== END | disposition home or self-care (01) ==
LOC: WOUND CARE 14:07
PROVIDERS: ATTEND Nurse Practitioner
DX: I83.018 Varicose veins of right lower extremity with ulcer other part of lower leg (principal); L97.811 Non-pressure chronic ulcer of other part of right lower leg limited to breakdown of skin; I83.028 Varicose veins of left lower extremity with ulcer other part of lower leg; L97.821 Non-pressure chronic ulcer of other part of left lower leg limited to breakdown of skin; L97.221 Non-pressure chronic ulcer of left calf limited to breakdown of skin; L97.212 Non-pressure chronic ulcer of right calf with fat layer exposed; I87.2 Venous insufficiency (chronic) (peripheral); K21.9 Gastro-esophageal reflux disease without esophagitis; I13.0 Hypertensive heart and chronic kidney disease with heart failure and stage 1 through stage 4 chronic kidney disease, or unspecified chronic kidney disease; I50.9 Heart failure, unspecified; N18.4 Chronic kidney disease, stage 4 (severe); E66.9 Obesity, unspecified; M10.9 Gout, unspecified; J45.909 Unspecified asthma, uncomplicated; M19.90 Unspecified osteoarthritis, unspecified site; M86.9 Osteomyelitis, unspecified; E78.5 Hyperlipidemia, unspecified; E87.6 Hypokalemia; K57.90 Diverticulosis of intestine, part unspecified, without perforation or abscess without bleeding; F32.9 Major depressive disorder, single episode, unspecified; Z79.2 Long term (current) use of antibiotics; Z68.39 Body mass index [BMI] 39.0-39.9, adult; Z79.899 Other long term (current) drug therapy; Z98.890 Other specified postprocedural states; Z87.891 Personal history of nicotine dependence; Z90.49 Acquired absence of other specified parts of digestive tract
CPT/HCPCS: G0463

== ENCOUNTER 2020-04-16 09:37 | Emergency (ER) | payer MEDICARE ==
[~2020-04-16] VITALS: Ht 175.3 cm; Wt 118.2 kg
[~2020-04-16 09:37] MED LIST changes: -LIDOcaine 2% 5ml jelly ONE
[2020-04-16 10:37] LABS: BASOPHILS % (AUTO) 0.6 % (0-1); EOSINOPHILS # (AUTO) 0.6 X10'3 (0-0.9); EOSINOPHILS % (AUTO) 9.4 % (0-6); HEMATOCRIT 38.1 % (42.0-52.0); HEMOGLOBIN 12.8 g/dl (14.0-17.9); LYMPHOCYTES # (AUTO) 1.5 X10'3 (1.1-4.8); LYMPHOCYTES % (AUTO) 24.4 % (21-51); MEAN CORPUSCULAR HEMOGLOBIN 33.5 PG (27.0-31.0); MEAN CORPUSCULAR HGB CONC 33.7 g/dL (33.0-36.5); MEAN CORPUSCULAR VOLUME 99.5 FL (78-98); MEAN PLATELET VOLUME 8.2 FL (7.4-10.4); MONOCYTES # (AUTO) 0.7 X10'3 (0-0.9); MONOCYTES % (AUTO) 11.1 % (2-12); NEUTROPHILS # (AUTO) 3.3 X10'3 (1.8-7.7); NEUTROPHILS % (AUTO) 54.5 % (42-75); PLATELET COUNT 153 X10'3 (140-440); RED BLOOD COUNT 3.83 X10'6 (4.70-6.10); RED CELL DISTRIBUTION WIDTH 15.5 % (11.5-14.5)
[2020-04-16 10:53] LABS: ALANINE AMINOTRANSFERASE 16 U/L (12-78); ALBUMIN 3.6 G/DL (3.4-5.0); ALBUMIN/GLOBULIN RATIO 0.9 (1.1-1.5); ALKALINE PHOSPHATASE 119 IU/L (46-116); ANION GAP 9 (8-16); ASPARTATE AMINO TRANSFERASE 26 U/L (10-37); BILIRUBIN,TOTAL 1.5 MG/DL (0.1-1.0); BLOOD UREA NITROGEN 44 MG/DL (7-18); BUN/CREATININE RATIO 19.5 (5.4-32.0); CHLORIDE 99 MMOL/L (99-107); CREATININE 2.26 MG/DL (0.60-1.10); GLUCOSE 145 MG/DL (70-104); POTASSIUM 3.6 MMOL/L (3.5-5.1); SODIUM 137 MMOL/L (135-145); TOTAL CARBON DIOXIDE 28.7 MMOL/L (24-32); TOTAL PROTEIN 7.6 G/DL (6.4-8.2); eGFR 29 ML/MIN
[2020-04-16] MEDS ORDERED: normal saline 1000ML IV soln IVB ONE (11:05)
[2020-04-16] MEDS ORDERED: ONDA4TAB6 PO (12:35)
[2020-04-16] MEDS ORDERED: ondansetron/PF 4mg/2ml inj IV ONE (12:35)
[2020-04-16 12:53] VITALS: BP 141/84
--- NOTE | 2020-04-16 13:12 | NUR ---
SECOND COVID TEST COMPLETED FOR SEND OUT. DC IV FROM RIGHT HAND. ASSIST PT TO WC AND TRANSFER OUT TO LOBBY TO WAIT FOR HIS SON TO COME AND GET HIM.
== END 2020-04-16 13:14 | disposition home or self-care (01) ==
LOC: ER 09:38
DX: B34.9 Viral infection, unspecified (principal); R19.7 Diarrhea, unspecified; R42 Dizziness and giddiness; R06.02 Shortness of breath; R53.83 Other fatigue; I10 Essential (primary) hypertension; Z20.828 Contact with and (suspected) exposure to other viral communicable diseases; R11.2 Nausea with vomiting, unspecified; R05 Cough; R51.9 Headache, unspecified; I13.0 Hypertensive heart and chronic kidney disease with heart failure and stage 1 through stage 4 chronic kidney disease, or unspecified chronic kidney disease; E11.22 Type 2 diabetes mellitus with diabetic chronic kidney disease; N18.9 Chronic kidney disease, unspecified; I50.9 Heart failure, unspecified; J45.909 Unspecified asthma, uncomplicated; Z90.49 Acquired absence of other specified parts of digestive tract; Z98.890 Other specified postprocedural states; Z72.89 Other problems related to lifestyle; Z88.0 Allergy status to penicillin; Z88.1 Allergy status to other antibiotic agents; Z88.8 Allergy status to other drugs, medicaments and biological substances; Z79.899 Other long term (current) drug therapy
CPT/HCPCS: 36415; 71045; 80053; 83880; 84484; 85025; 87635; 93005; 96361; 96374; 99285; C9803; J2405; J7030

== ENCOUNTER → 2020-05-27 | Outpatient (CLI) | payer MEDICARE ==
[~2020-05-27] MED LIST changes: -LISI-600 PO; +LISI20TA28 PO; +ONDA4TAB6 PO
== END | disposition home or self-care (01) ==
LOC: WOUND CARE 10:47
PROVIDERS: ATTEND Nurse Practitioner
DX: L97.221 Non-pressure chronic ulcer of left calf limited to breakdown of skin (principal); L97.212 Non-pressure chronic ulcer of right calf with fat layer exposed; I87.2 Venous insufficiency (chronic) (peripheral); K21.9 Gastro-esophageal reflux disease without esophagitis; I13.0 Hypertensive heart and chronic kidney disease with heart failure and stage 1 through stage 4 chronic kidney disease, or unspecified chronic kidney disease; N18.9 Chronic kidney disease, unspecified; I50.9 Heart failure, unspecified; E66.9 Obesity, unspecified; M10.9 Gout, unspecified; J45.909 Unspecified asthma, uncomplicated; M19.90 Unspecified osteoarthritis, unspecified site; M86.9 Osteomyelitis, unspecified; E78.5 Hyperlipidemia, unspecified; E87.6 Hypokalemia; K57.90 Diverticulosis of intestine, part unspecified, without perforation or abscess without bleeding; F32.9 Major depressive disorder, single episode, unspecified; Z79.2 Long term (current) use of antibiotics; Z68.39 Body mass index [BMI] 39.0-39.9, adult; Z79.899 Other long term (current) drug therapy; Z98.890 Other specified postprocedural states; Z87.891 Personal history of nicotine dependence; Z90.49 Acquired absence of other specified parts of digestive tract; Z98.49 Cataract extraction status, unspecified eye
CPT/HCPCS: G0463

== ENCOUNTER 2021-01-12 00:18 | Emergency (ER) | payer MEDICARE ==
[~2021-01-12] VITALS: Ht 175.3 cm; Wt 118.0 kg
[2021-01-12 01:25] LABS: BASOPHILS # (AUTO) 0.1 X10'3 (0-0.2); BASOPHILS % (AUTO) 0.7 % (0-1); EOSINOPHILS # (AUTO) 0.9 X10'3 (0-0.9); EOSINOPHILS % (AUTO) 9.8 % (0-6); HEMATOCRIT 32.9 % (42.0-52.0); HEMOGLOBIN 11.3 g/dl (14.0-17.9); LYMPHOCYTES # (AUTO) 2.4 X10'3 (1.1-4.8); LYMPHOCYTES % (AUTO) 25.8 % (21-51); MEAN CORPUSCULAR HEMOGLOBIN 32.8 PG (27.0-31.0); MEAN CORPUSCULAR HGB CONC 34.3 g/dL (33.0-36.5); MEAN CORPUSCULAR VOLUME 95.7 FL (78-98); MEAN PLATELET VOLUME 7.6 FL (7.4-10.4); MONOCYTES # (AUTO) 0.5 X10'3 (0-0.9); MONOCYTES % (AUTO) 5.5 % (2-12); NEUTROPHILS # (AUTO) 5.5 X10'3 (1.8-7.7); NEUTROPHILS % (AUTO) 58.2 % (42-75); PLATELET COUNT 309 X10'3 (140-440); RED BLOOD COUNT 3.44 X10'6 (4.70-6.10); WHITE BLOOD COUNT 9.4 X10'3 (4.5-11.0)
[2021-01-12 01:41] LABS: ALANINE AMINOTRANSFERASE 20 U/L (12-78); ALBUMIN 3.1 G/DL (3.4-5.0); ALBUMIN/GLOBULIN RATIO 0.7 (1.1-1.5); ALKALINE PHOSPHATASE 155 IU/L (46-116); ANION GAP 13 (8-16); ASPARTATE AMINO TRANSFERASE 32 U/L (10-37); BILIRUBIN,TOTAL 0.5 MG/DL (0.1-1.0); BLOOD UREA NITROGEN 20 MG/DL (7-18); BUN/CREATININE RATIO 10.3 (5.4-32.0); CALCIUM 8.3 MG/DL (8.5-10.1); CHLORIDE 98 MMOL/L (99-107); CREATININE 1.94 MG/DL (0.60-1.10); ETHANOL 0.226 GM/DL (0.0-0.010); GLUCOSE 101 MG/DL (70-104); POTASSIUM 3.9 MMOL/L (3.5-5.1); SODIUM 135 MMOL/L (135-145); TOTAL CARBON DIOXIDE 23.9 MMOL/L (24-32); TOTAL PROTEIN 7.6 G/DL (6.4-8.2); eGFR 34 ML/MIN
[2021-01-12 03:04] LABS: MAGNESIUM 1.4 MG/DL (1.5-2.4)
[2021-01-12 03:22] VITALS: BP 157/89
[2021-01-12] MEDS ORDERED: acetaminophen 325mg tablet PO ONE (04:35)
[2021-01-12] MEDS ORDERED: ibuprofen tablet 400 MG TABLET PO ONE (04:35)
[2021-01-12 04:51] LABS: CLARITY,URINE CLOUDY (Clear); COLOR,URINE YELLOW (Yellow); GLUCOSE, URINE NEGATIVE (Neg); KETONES,URINE NEGATIVE (Neg); LEUKOCYTE ESTERASE ,URINE MODERATE (Neg); NITRITES, URINE POSITIVE (Neg); OCCULT BLOOD,URINE SMALL (Neg); PH,URINE 6.5 (4.8-8.0); PROTEIN,URINE TRACE mg/dl (Neg); UA COLLECTION TYPE URINAL; UROBILINOGEN,URINE 0.2 E.U/dL (0.2-1.0)
[2021-01-12] MEDS ORDERED: levoFLOXACIN 250mg tablet PO ONE (04:55)
[2021-01-12] MEDS ORDERED: LEVO500T89 PO (04:56)
[2021-01-12 05:04] LABS: BACTERIA,URINE 3+ /HPF (Neg); SQUAMOUS EPITHELIAL CELL,UR FEW /LPF (FEW); WBC CLUMPS,URINE MANY /HPF (NEGATIVE); WBC,URINE TNTC /HPF (0-4)
== END 2021-01-12 07:25 | disposition home or self-care (01) ==
LOC: ER 00:19
DX: S01.01XA Laceration without foreign body of scalp, initial encounter (principal); M54.6 Pain in thoracic spine; R42 Dizziness and giddiness; F10.129 Alcohol abuse with intoxication, unspecified; N39.0 Urinary tract infection, site not specified; I11.0 Hypertensive heart disease with heart failure; I50.9 Heart failure, unspecified; E78.00 Pure hypercholesterolemia, unspecified; J45.909 Unspecified asthma, uncomplicated; I12.0 Hypertensive chronic kidney disease with stage 5 chronic kidney disease or end stage renal disease; E11.22 Type 2 diabetes mellitus with diabetic chronic kidney disease; N18.9 Chronic kidney disease, unspecified; Z90.49 Acquired absence of other specified parts of digestive tract; Z72.89 Other problems related to lifestyle; Z88.0 Allergy status to penicillin; Z88.1 Allergy status to other antibiotic agents; Z88.8 Allergy status to other drugs, medicaments and biological substances; Z79.2 Long term (current) use of antibiotics; Z79.899 Other long term (current) drug therapy; W19.XXXA Unspecified fall, initial encounter; Y90.8 Blood alcohol level of 240 mg/100 ml or more; Y93.89 Activity, other specified; Y92.89 Other specified places as the place of occurrence of the external cause; Y99.8 Other external cause status
CPT/HCPCS: 36415; 70450; 71045; 72125; 80053; 80320; 81001; 83735; 85025; 87077; 87088; 87186; 93005; 99285

== ENCOUNTER 2021-03-21 07:40 | Emergency (ER) | payer MEDICARE ==
[~2021-03-21] VITALS: Ht 175.3 cm; Wt 113.0 kg
[2021-03-21] MEDS ORDERED: normal saline 1000ml 1,000 ML IV ONE (08:20)
[2021-03-21 08:50] LABS: BASOPHILS # (AUTO) 0.1 X10'3 (0-0.2); BASOPHILS % (AUTO) 0.7 % (0-1); EOSINOPHILS # (AUTO) 0.4 X10'3 (0-0.9); EOSINOPHILS % (AUTO) 5.1 % (0-6); HEMATOCRIT 32.9 % (42.0-52.0); LYMPHOCYTES # (AUTO) 2.2 X10'3 (1.1-4.8); LYMPHOCYTES % (AUTO) 28.8 % (21-51); MEAN CORPUSCULAR HEMOGLOBIN 30.3 PG (27.0-31.0); MEAN CORPUSCULAR HGB CONC 33.4 g/dL (33.0-36.5); MEAN CORPUSCULAR VOLUME 90.8 FL (78-98); MEAN PLATELET VOLUME 7.6 FL (7.4-10.4); MONOCYTES # (AUTO) 0.6 X10'3 (0-0.9); MONOCYTES % (AUTO) 7.9 % (2-12); NEUTROPHILS # (AUTO) 4.4 X10'3 (1.8-7.7); NEUTROPHILS % (AUTO) 57.5 % (42-75); PLATELET COUNT 319 X10'3 (140-440); RED BLOOD COUNT 3.62 X10'6 (4.70-6.10); RED CELL DISTRIBUTION WIDTH 18.1 % (11.5-14.5); WHITE BLOOD COUNT 7.6 X10'3 (4.5-11.0)
[2021-03-21 09:10] LABS: CLARITY,URINE SLIGHTLY CLOUDY (Clear); COLOR,URINE YELLOW (Yellow); GLUCOSE, URINE NEGATIVE (Neg); KETONES,URINE NEGATIVE (Neg); LEUKOCYTE ESTERASE ,URINE SMALL (Neg); NITRITES, URINE NEGATIVE (Neg); OCCULT BLOOD,URINE NEGATIVE (Neg); PROTEIN,URINE NEGATIVE (Neg); UROBILINOGEN,URINE 0.2 E.U/dL (0.2-1.0)
[2021-03-21 09:12] LABS: UA COLLECTION TYPE NON-SPECIFIED
[2021-03-21 09:17] LABS: ALANINE AMINOTRANSFERASE 15 U/L (12-78); ALBUMIN 3.6 G/DL (3.4-5.0); ALBUMIN/GLOBULIN RATIO 0.7 (1.1-1.5); ALKALINE PHOSPHATASE 115 IU/L (46-116); ANION GAP 14 (8-16); ASPARTATE AMINO TRANSFERASE 28 U/L (10-37); BILIRUBIN,TOTAL 0.6 MG/DL (0.1-1.0); BLOOD UREA NITROGEN 56 MG/DL (7-18); BUN/CREATININE RATIO 22.6 (5.4-32.0); CHLORIDE 98 MMOL/L (99-107); CREATININE 2.48 MG/DL (0.60-1.10); GLUCOSE 125 MG/DL (70-104); LIPASE 79 U/L (73-393); SODIUM 138 MMOL/L (135-145); TOTAL CARBON DIOXIDE 25.6 MMOL/L (24-32); TOTAL PROTEIN 8.6 G/DL (6.4-8.2); eGFR 26 ML/MIN
[2021-03-21 09:19] LABS: WBC,URINE 0-4 /HPF (0-4)
[2021-03-21 09:19] LABS: POTASSIUM 2.6 MMOL/L (3.5-5.1)
[2021-03-21 09:20] LABS: BACTERIA,URINE FEW /HPF (Neg); MUCUS STRANDS FEW /LPF (Neg); RBC,URINE NONE SEEN /HPF (0-2); RENAL CELLS, URINE FEW /HPF; SQUAMOUS EPITHELIAL CELL,UR MODERATE /LPF (FEW)
[2021-03-21] MEDS ORDERED: potassium Cl 20 mEq SR tablet PO STA ×2 (09:34→14:36)
[2021-03-21] MEDS ORDERED: ondansetron 4mg rapidly disintigrating tab PO ONE (09:35)
[2021-03-21] MEDS ORDERED: predniSONE 20 mg tablet PO ONE (09:50)
[2021-03-21] MEDS ORDERED: calcium carbonate 500mg chew tablet PO ONE (09:56)
--- NOTE | 2021-03-21 10:00 | NUR ---
Patient's son: Gene Hampton [phone] [id number]: Roxanna [phone]
[2021-03-21] MEDS: potassium Cl 10 mEq/100mL bag IV SCH ×2 (10:03→11:25)
--- NOTE | 2021-03-21 10:15 | NUR ---
Patient given warm blanket and lights turned off per request.
[2021-03-21 11:10] VITALS: BP 125/78
--- NOTE | 2021-03-21 11:18 | NUR ---
Pt is requesting "Tumms".
[2021-03-21] MEDS ORDERED: HYDROcodone/acetaminophen 5mg/325mg tablet PO ONE (11:45)
[2021-03-21] MEDS ORDERED: calcium carbonate 500mg chew tablet PO SCH (12:30)
--- NOTE | 2021-03-21 13:20 | NUR ---
Patient ambulates to restroom with walker; gait steady.
[2021-03-21] MEDS ORDERED: PRED20TA PO (14:34)
[2021-03-21] MEDS ORDERED: POTA-82 PO (14:35)
== END 2021-03-21 15:04 | disposition home or self-care (01) ==
LOC: ER 07:41
DX: E87.6 Hypokalemia (principal); R53.1 Weakness; M10.9 Gout, unspecified; R11.10 Vomiting, unspecified; R53.83 Other fatigue; J45.909 Unspecified asthma, uncomplicated; K21.9 Gastro-esophageal reflux disease without esophagitis; I13.0 Hypertensive heart and chronic kidney disease with heart failure and stage 1 through stage 4 chronic kidney disease, or unspecified chronic kidney disease; E11.22 Type 2 diabetes mellitus with diabetic chronic kidney disease; N18.9 Chronic kidney disease, unspecified; Z90.49 Acquired absence of other specified parts of digestive tract; Z72.89 Other problems related to lifestyle; Z88.1 Allergy status to other antibiotic agents; Z88.0 Allergy status to penicillin; Z88.8 Allergy status to other drugs, medicaments and biological substances; Z79.899 Other long term (current) drug therapy
CPT/HCPCS: 36415; 80053; 81001; 83605; 83690; 84132; 84550; 85025; 96365; 96366; 99284; J3480; J7030; J7512

== ENCOUNTER 2024-02-20 14:54 | Emergency (ER) | payer MEDICARE ==
[~2024-02-20] VITALS: Ht 177.8 cm; Wt 118.0 kg
[~2024-02-20 14:54] MED LIST changes: +AMLO10TA13 PO; -AMLO5TAB16 PO; +ASPI81TA52 PO; -CARV-50 PO; +CARV12.545 PO; +CLOP75TA34 PO; +COLC0.6T72 PO; -CYAN-51 PO; +CYAN100087 PO; -DULO20CA18 PO; +FERR325T7 PO; +HYDR-3973 PO; +HYDR50TA65 PO; +IBUP-1984 PO; -IPRA4AER IH; -LISI20TA28 PO; +MELA1TAB52 PO; -MULT-1085 PO; +NITR0.4T48 SL; -OMEP20CA15 PO; +OMEP20CA16 PO; -ONDA4TAB6 PO; +QUET50TA94 PO; +ROSU20TA2 PO; +SERT-434 PO; -VIT1CAPS27 PO; +VIT1CAPS46 PO
[2024-02-20 15:54] LABS: BASOPHILS % (AUTO) 0.5 % (0-1); HEMATOCRIT 34.1 % (42.0-52.0); HEMOGLOBIN 11.3 g/dl (14.0-17.9); LYMPHOCYTES # (AUTO) 1.9 X10'3 (1.1-4.8); MEAN CORPUSCULAR HEMOGLOBIN 31.8 PG (27.0-31.0); MEAN CORPUSCULAR VOLUME 96.5 FL (78-98); MEAN PLATELET VOLUME 8.3 FL (7.4-10.4); MONOCYTES # (AUTO) 0.4 X10'3 (0-0.9); NEUTROPHILS # (AUTO) 4.7 X10'3 (1.8-7.7); NEUTROPHILS % (AUTO) 58.5 % (42-75); PLATELET COUNT 174 X10'3 (140-440); RED BLOOD COUNT 3.53 X10'6 (4.70-6.10); RED CELL DISTRIBUTION WIDTH 15.1 % (11.5-14.5)
[2024-02-20 16:16] LABS: ALANINE AMINOTRANSFERASE 9 U/L (12-78); ALBUMIN 3.7 G/DL (3.4-5.0); ALBUMIN/GLOBULIN RATIO 0.9 (1.1-1.5); ALKALINE PHOSPHATASE 91 IU/L (46-116); ANION GAP 9 (8-16); ASPARTATE AMINO TRANSFERASE 26 U/L (10-37); BILIRUBIN,TOTAL 0.8 MG/DL (0.1-1.0); BLOOD UREA NITROGEN 15 MG/DL (7-18); BUN/CREATININE RATIO 11.8 (10.0-20.0); CALCIUM 8.8 MG/DL (8.5-10.1); CHLORIDE 107 MMOL/L (99-107); CREATININE 1.27 MG/DL (0.60-1.10); GLUCOSE 104 MG/DL (70-104); SODIUM 141 MMOL/L (135-145); TOTAL CARBON DIOXIDE 25.5 MMOL/L (24-32); TOTAL PROTEIN 7.6 G/DL (6.4-8.2); eCRCL 48 ML/MIN; eGFR 55 ML/MIN
[2024-02-20 16:17] LABS: POTASSIUM 3.4 MMOL/L (3.5-5.1)
[2024-02-20 17:06] LABS: BILIRUBIN,URINE NEGATIVE (Neg); CLARITY,URINE SLIGHTLY CLOUDY (Clear); COLOR,URINE YELLOW (Yellow); GLUCOSE, URINE >=1000 mg/dl (Neg); KETONES,URINE NEGATIVE (Neg); LEUKOCYTE ESTERASE ,URINE NEGATIVE (Neg); NITRITES, URINE POSITIVE (Neg); OCCULT BLOOD,URINE MODERATE (Neg); PROTEIN,URINE >=300 mg/dl (Neg); UROBILINOGEN,URINE 0.2 E.U/dL (0.2-1.0)
[2024-02-20 17:09] LABS: UA COLLECTION TYPE OTHER
[2024-02-20 17:10] LABS: BACTERIA,URINE 4+ /HPF (Neg); MUCUS STRANDS FEW /LPF (Neg); SQUAMOUS EPITHELIAL CELL,UR FEW /LPF (FEW); WBC,URINE 20-30 /HPF (0-4)
[2024-02-20] MEDS ORDERED: CLIN-214 PO (17:58)
[2024-02-20] MEDS: clindamycin 150mg capsule PO ONE (18:15)
[2024-02-20 19:00] VITALS: BP 124/72; PULSE 60; RESP 18; TEMP 98.2; O2SAT 97
== END 2024-02-20 19:45 | disposition home or self-care (01) ==
LOC: ER 14:54
DX: N39.0 Urinary tract infection, site not specified (principal); E11.22 Type 2 diabetes mellitus with diabetic chronic kidney disease; I13.0 Hypertensive heart and chronic kidney disease with heart failure and stage 1 through stage 4 chronic kidney disease, or unspecified chronic kidney disease; I50.9 Heart failure, unspecified; N18.9 Chronic kidney disease, unspecified; E78.00 Pure hypercholesterolemia, unspecified; J45.909 Unspecified asthma, uncomplicated; K21.9 Gastro-esophageal reflux disease without esophagitis; F10.90 Alcohol use, unspecified, uncomplicated; Z90.49 Acquired absence of other specified parts of digestive tract; Z98.890 Other specified postprocedural states; Z88.1 Allergy status to other antibiotic agents; Z88.0 Allergy status to penicillin; Z79.82 Long term (current) use of aspirin; Z79.899 Other long term (current) drug therapy
CPT/HCPCS: 36415; 80053; 81001; 85025; 87077; 87088; 87186; 99284

== ENCOUNTER 2024-02-23 19:05 | Emergency (ER) | payer MEDICARE ==
[~2024-02-23] VITALS: Ht 175.3 cm; Wt 120.0 kg
[~2024-02-23 19:05] MED LIST changes: +CLIN-214 PO
[2024-02-23 19:12] VITALS: TEMP 98.2
[2024-02-23 20:51] VITALS: BP 166/98; PULSE 78; RESP 16; O2SAT 94
== END 2024-02-23 21:00 | disposition home or self-care (01) ==
LOC: ER 19:05
DX: S40.012A Contusion of left shoulder, initial encounter (principal); I13.0 Hypertensive heart and chronic kidney disease with heart failure and stage 1 through stage 4 chronic kidney disease, or unspecified chronic kidney disease; E11.22 Type 2 diabetes mellitus with diabetic chronic kidney disease; I50.9 Heart failure, unspecified; N18.9 Chronic kidney disease, unspecified; E78.00 Pure hypercholesterolemia, unspecified; J45.909 Unspecified asthma, uncomplicated; K21.9 Gastro-esophageal reflux disease without esophagitis; Z90.49 Acquired absence of other specified parts of digestive tract; F10.90 Alcohol use, unspecified, uncomplicated; Z88.0 Allergy status to penicillin; Z88.1 Allergy status to other antibiotic agents; Z79.1 Long term (current) use of non-steroidal anti-inflammatories (NSAID); Z79.899 Other long term (current) drug therapy; W18.39XA Other fall on same level, initial encounter; Y93.89 Activity, other specified; Y92.89 Other specified places as the place of occurrence of the external cause; Y99.8 Other external cause status
CPT/HCPCS: 73030; 99284